=== PATIENT | female | born 1985 | race Caucasian/White ===

== ENCOUNTER 2023-08-23 08:00 | Outpatient (CLI) | payer OTHER ==
[2023-08-23 16:10] LABS: BILIRUBIN,URINE NEGATIVE (NEGATIVE); GLUCOSE, URINE (UA) NEGATIVE (NEGATIVE); KETONES,URINE (UA) NEGATIVE (NEGATIVE); LEUKOCYTE ESTERASE, URINE NEGATIVE (NEGATIVE); NITRITE,URINE NEGATIVE (NEGATIVE); OCCULT BLOOD,URINE NEGATIVE (NEGATIVE); PH,URINE 6.5 PH (5.0-7.5); PROTEIN,URINE NEGATIVE (NEGATIVE); UROBILINOGEN,URINE 0.2 (NORMAL) E.U./dL (NORMAL)
[2023-08-23 16:34] LABS: BACTERIA,URINE None Seen /HPF (None Seen); CLARITY,URINE CLEAR (CLEAR); RBC,URINE None Seen /HPF (0-5); SQUAMOUS EPITHELIAL CELL,UR RARE Squamous (<= Few); WBC,URINE 0-3 /HPF (0-5)
== END 2023-08-23 23:59 | disposition home or self-care (01) ==
LOC: LAB.WC 08:00
PROVIDERS: ATTEND Obstetrics & Gynecology
DX: Z34.90 Encounter for supervision of normal pregnancy, unspecified, unspecified trimester (principal)
CPT/HCPCS: 81001; 87086

== ENCOUNTER 2023-08-31 08:45 | Outpatient (CLI) | payer OTHER ==
--- NOTE | 2023-08-31 21:36 | Ultrasound Report ---
PROCEDURE: OB 1st Trimester INDICATIONS: POSITIVE TEST OUTSIDE/PRIOR DATING DATA: Last menstrual period (LMP): 06/06/2023?. LMP-based estimated date of delivery (ИРИНА): 03/12/2024. First dating scan (date and location): 08/31/2023. Estimated date of delivery (ИРИНА) from first dating scan: 03/20/2024. TECHNIQUE: Real-time scanning was performed of the fetus and maternal pelvic organs, with image documentation. COMPARISON: None. FINDINGS: Intrauterine gestational sac present. Embryo: [place]-rump length measures 4.35 cm, gestational age 11 weeks 1 days. Heart rate: 171 bpm. Other: Perigestational fluid collection, estimated length 5.6 cm. Measurement variability in dating: +/- 4 weeks by LMP, +/- 7 days by mean sac diameter (use before 6 weeks gestation if crown-rump length not able to be measured), +/- 5 days by crown-rump length (6-12 weeks gestation). Maternal organs: Ovaries appear within normal limits. IMPRESSION: 1. [place] living intrauterine at 11 weeks 1 day based on today's crown-rump length. 2. Perigestational hemorrhage noted. Reviewed by: Cem Bahena MD on 08/31/2023 9:34 PM PDT Approved by: Cem Bahena MD on 08/31/2023 9:34 PM PDT Station ID: [id number]
== END 2023-08-31 08:46 | disposition home or self-care (01) ==
LOC: DI 08:45
PROVIDERS: ATTEND Obstetrics & Gynecology
DX: O46.91 Antepartum hemorrhage, unspecified, first trimester (principal); Z3A.11 11 weeks gestation of pregnancy

== ENCOUNTER 2023-09-19 17:00 | Outpatient (CLI) | payer OTHER ==
--- NOTE | 2023-09-20 11:42 | Ultrasound Report ---
PROCEDURE: OB 1st Trimester INDICATIONS: SPOTTING COMPLICATING OUTSIDE/PRIOR DATING DATA: Last menstrual period (LMP): 06/06/2023. LMP-based estimated date of delivery (ИРИНА): 03/12/2024. First dating scan (date and location): 08/31/2023. Estimated date of delivery (ИРИНА) from first dating scan: 03/20/2024. TECHNIQUE: Real-time scanning was performed of the fetus and maternal pelvic organs with image docum entation. COMPARISON: 08/31/2023 FINDINGS: Heart rate: 160 bpm. Embryo: [place]-rump length measures 7.56 cm, cm corresponding to a 13 week 4 day gestation. Other: Perigestational bleed measures 2.3 x 1.0 x 4.2 cm, previously 5.6 cm Measurement variability in dating: +/- 4 weeks by LMP, +/- 7 days by mean sac diameter (use before 6 weeks gestation if crown-rump length not able to be measured), +/- 5 days by crown-rump length (6-12 weeks gestation). Maternal organs: Unremarkable IMPRESSION: Single live intrauterine consistent with 13 week 4 day gestation. Largest perigestational bleed shows slight improvement compared to prior. Consider close interval fol low-up. Reviewed by: Cheo Chavez MD on 09/20/2023 10:41 AM TIMMY Approved by: Cheo Chavez MD on 09/20/2023 10:41 AM TIMMY Station ID: [id number]
== END 2023-09-19 17:01 | disposition home or self-care (01) ==
LOC: DI 17:00
PROVIDERS: ATTEND Obstetrics & Gynecology
DX: O46.8X1 Other antepartum hemorrhage, first trimester (principal); Z3A.13 13 weeks gestation of pregnancy

== ENCOUNTER 2023-09-20 08:43 | Outpatient (CLI) | payer OTHER ==
[2023-09-20 09:04] LABS: BASOPHILS % (AUTO) 0.2 %; EOSINOPHILS # (AUTO) 0.1 10^3/uL (0.0-0.7); EOSINOPHILS % (AUTO) 1.2 %; HCT - HEMATOCRIT 38.2 % (37.0-47.0); HGB - HEMOGLOBIN 12.8 g/dL (12.0-16.0); LYMPHOCYTES # (AUTO) 1.5 10^3/uL (1.5-3.5); LYMPHOCYTES % (AUTO) 12.5 %; MEAN CORPUSCULAR HEMOGLOBIN 31.5 pg (27.0-31.0); MEAN CORPUSCULAR HGB CONC 33.5 g/dL (32.0-36.0); MEAN CORPUSCULAR VOLUME 94.1 fL (81.0-99.0); MEAN PLATELET VOLUME 9.6 fL (7.9-10.8); MONOCYTES # (AUTO) 0.7 10^3/uL (0.0-1.0); MONOCYTES % (AUTO) 5.4 %; NEUTROPHILS # (AUTO) 9.7 10^3/uL (1.5-6.6); NEUTROPHILS % (AUTO) 80.3 %; PLT - PLATELET COUNT 311 10^3/uL (130-450); RED BLOOD COUNT 4.06 10^6/uL (4.20-5.40); RED CELL DISTRIBUTION WIDTH 12.8 % (12.0-15.0); WHITE BLOOD COUNT 12.1 x10^3/uL (4.8-10.8)
[2023-09-20 09:22] LABS: CREATININE,URINE 127.3 mg/dL; PROTEIN/CREATININE RATIO,URINE 0.1 (<=0.2)
[2023-09-20 09:23] LABS: ALBUMIN/GLOBULIN RATIO 1.3 (1.0-2.2); BILIRUBIN,TOTAL 0.6 mg/dL (0.2-1.0); CREATININE 0.8 mg/dL (0.6-1.3); POTASSIUM 3.6 mmol/L (3.5-4.5)
[2023-09-20 09:59] LABS: ESTIMATED AVERAGE GLUCOSE 85 mg/dL (70-100); HEMOGLOBIN A1c% 4.6 % (4.27-6.07)
[2023-09-21 03:12] LABS: HIV SCREEN 4TH GENERATION Non Reactive (Non Reactive)
[2023-09-21 08:11] LABS: HBsAG SCREEN Negative (Negative)
[2023-09-21 12:10] LABS: VARICELLA-ZOSTER AB IGG 1341 index (Immune >165)
== END 2023-09-20 08:44 | disposition home or self-care (01) ==
LOC: LAB 08:43
PROVIDERS: ATTEND Obstetrics & Gynecology
DX: O09.522 Supervision of elderly multigravida, second trimester (principal)
CPT/HCPCS: 36415; 80053; 82570; 83036; 84156; 85025; 86592; 86762; 86787; 86803; 86850; 86900; 86901; 87340; 87389

== ENCOUNTER 2023-09-22 08:00 | Outpatient (CLI) | payer OTHER ==
[2023-09-22 23:03] LABS: CHLAMYDIA TRACHOMATIS DNA NEGATIVE (NEGATIVE); NEISSERIA GONORRHOEAE DNA NEGATIVE (NEGATIVE); TRICHOMONAS VAGINALIS DNA NEGATIVE (NEGATIVE)
== END 2023-09-22 23:59 | disposition home or self-care (01) ==
LOC: LAB.WC 08:00
PROVIDERS: ATTEND Obstetrics & Gynecology
DX: Z11.3 Encounter for screening for infections with a predominantly sexual mode of transmission (principal)
CPT/HCPCS: 87491; 87591; 87661

== ENCOUNTER 2023-11-07 10:45 | Outpatient (CLI) | payer OTHER ==
--- NOTE | 2023-11-07 19:18 | Ultrasound Report ---
PROCEDURE: OB Anatomy Scan INDICATIONS: SUPERVISION OF OUTSIDE/PRIOR DATING DATA: Last menstrual period (LMP): 06/06/2023. LMP-based estimated date of delivery (ИРИНА): 03/12/2024. First dating scan (date and location): 08/31/2023. Estimated date of delivery (ИРИНА) from first dating scan: 03/20/2024. The below data below was generated using the ultrasound ИРИНА of 03/20/2024 TECHNIQUE: Real-time scanning was performed of the fetus, with image documentation and biometric measurements. Endovaginal scanning: Not performed. COMPARISON: OB ultrasound 09/19/2023 FINDINGS: General: A single living intrauterine gestation is present. Presentation: Breech Placenta: Placental position is fundal, without previa. Amniotic fluid index: 14.2 cm, within normal limits for gestational age. heart rate: 153 beats per minute. Maternal cervical canal: 5.0 cm long; normal length is 2.5 cm or more. biometrics: Biparietal diameter: 4.9 cm, 20 weeks 6 days, 49th percentile Head circumference: 18.1 cm, 20 weeks 4 days, 27th percentile Abdominal circumference: 15.9 cm, 21 weeks 0 days, 50th percentile Femur length: 3.6 cm, 20 weeks 2 days, 58th percentile Estimated gestational age from initial scan: 20 weeks 6 days Composite gestational age from present scan: 20 weeks 5 days Estimated weight and percentile: 400 g, 59th percentile Measurement variability in biometric dating: +/- 10 days from 12-20 weeks gestation, +/- 2 weeks from 20-30 weeks gestation, +/- 3 weeks at 30 weeks gestation or later. Anatomic survey: Neuro: Ventricles are normal at less than 10 mm. Cisterna magna is normal at 3-11 mm. Cerebellum i s normal in size and morphology. Nuchal skin fold: Normal at less than 6 mm between 14 and 20 weeks gestational age. Face: Nose and lips, facial profile are normal. Spine: No evidence for spina bifida. Heart: 4-chambered heart is present, with normal ventricular outflow tracts. Diaphragm: Diaphragm is intact. Stomach: Left-sided stomach is present. Kidneys: No hydronephrosis. Normal is less than 5 mm in 2nd trimester, less than 7 mm in 3rd trimester. Cord: 3 vessel cord has orthotopic insertion. Bladder: Normal in size. Extremities: All 4 extremities are visualized. IMPRESSION: 1.Single live intrauterine with appropriate interval growth. 2. anatomic survey is within normal limits. Reviewed by: Francois Winn MD on 11/07/2023 7:16 PM PDT Approved by: Francois Winn MD on 11/07/2023 7:16 PM PDT Station ID: [id number]
== END 2023-11-07 10:46 | disposition home or self-care (01) ==
LOC: DI 10:45
PROVIDERS: ATTEND Obstetrics & Gynecology
DX: O09.522 Supervision of elderly multigravida, second trimester (principal); Z36.9 Encounter for antenatal screening, unspecified; Z3A.20 20 weeks gestation of pregnancy

== ENCOUNTER 2023-12-21 08:48 | Outpatient (CLI) | payer OTHER ==
[2023-12-21 10:01] LABS: HCT - HEMATOCRIT 37.5 % (37.0-47.0); HGB - HEMOGLOBIN 12.5 g/dL (12.0-16.0); MEAN CORPUSCULAR HEMOGLOBIN 31.5 pg (27.0-31.0); MEAN CORPUSCULAR HGB CONC 33.3 g/dL (32.0-36.0); MEAN CORPUSCULAR VOLUME 94.5 fL (81.0-99.0); MEAN PLATELET VOLUME 10.1 fL (7.9-10.8); RED BLOOD COUNT 3.97 10^6/uL (4.20-5.40); RED CELL DISTRIBUTION WIDTH 13.6 % (12.0-15.0); WHITE BLOOD COUNT 10.5 x10^3/uL (4.8-10.8)
[2023-12-22 08:11] LABS: RPR Non Reactive (Non Reactive)
== END 2023-12-21 08:49 | disposition home or self-care (01) ==
LOC: LAB 08:48
PROVIDERS: ATTEND Obstetrics & Gynecology
DX: O09.522 Supervision of elderly multigravida, second trimester (principal)
CPT/HCPCS: 36415; 82950; 85027; 86592

== ENCOUNTER 2024-03-04 18:56 | Inpatient (IN) ==
[2024-03-04] MEDS ORDERED: NIFEdipine 10 MG CAPSULE PO PRN (19:11)
[2024-03-04] MEDS ORDERED: LABETALOL 20 MG/4 ML SYRINGE IVP PRN ×3 (19:11)
[2024-03-04] MEDS ORDERED: OXYTOCIN 10 UNIT/ML VIAL IM PRN (19:11)
[2024-03-04] MEDS ORDERED: TRANEXAMIC ACID IN NACL 1,000 MG/100 ML BAG IV PRN (19:11)
[2024-03-04] MEDS ORDERED: SODIUM CHLORIDE FLUSH 0.9% 10 ML SYRINGE IVP PRN (19:11)
[2024-03-04] MEDS ORDERED: hydrALAZINE INJ 20 MG/ML VIAL IVP PRN ×2 (19:11)
[2024-03-04] MEDS ORDERED: CARBOPROST TROMETHAMINE 250 MCG/ML VIAL IM PRN (19:11)
[2024-03-04] MEDS ORDERED: miSOPROStoL 200 MCG TABLET BC PRN (19:11)
[2024-03-04] MEDS ORDERED: LACTATED RINGERS 1,000 ML IV PRN (19:11)
[2024-03-04] MEDS ORDERED: OXYTOCIN/SODIUM CHLORIDE 500 ML IV PRN (19:11)
[2024-03-04] MEDS ORDERED: lidocaine 1% 20 ML MDV ID PRN (19:11)
[2024-03-04] MEDS ORDERED: METHYLERGONOVINE 0.2 MG/ML VIAL IM PRN (19:11)
--- NOTE | 2024-03-04 19:29 | HISTORY & PHYSICAL EXAMINATION ---
Admit History Visit Reason Visit Reason: Other (Induction of Labor for Gestational Hypertension ) : 5 Parity: 4 Smoking Status: Never smoker Mother's Labs Mother's Blood Type: positive O Mother's RH: positive Positive GBS: positive Group B Step Negative Rubella Status: positive Immune HPI Current : 38-year-old G5, P4 at 37 weeks 5 days Who returns for induction of labor secondary to gestational hypertension. The patient has no complaints. She notes positive movement. She denies leakage of fluid or vaginal bleeding. She denies contractions. I discussed the plan for induction of labor for gestational hypertension. All questions and concerns were addressed. I discussed the risk and benefit associated with induction of labor. Consents were signed. Baby girl's name is [employer] Home Medications Ambulatory Orders Medication Instructions Recorded Confirmed vitamins no.159-iron tab PO 01/27/24 02/24/24 fumarate 28 mg-folic acid 800 mcg tablet ( Vitamin) Allergies Allergies Allergy/AdvReac Type Severity Reaction Status Date / Time Penicillins Allergy Severe Unknown Verified 02/24/24 08:44 [facility] Surgical History Surgical History H/O dilation and curettage History of tonsillectomy Family History Family History Father High blood pressure Mother High blood pressure Maternal grandmother High blood pressure Paternal grandfather Diabetes Social History Social History Smoking Status: Never smoker ETOH Use: None Substance Use: denies use Physical Monitoring Heart Rate Baseline: 130 Strip Review: positive Category I Presentation Presentation: positive Vertex Vaginal Exam Membranes: positive Membranes intact Dilation (in cm): 2 Effacement (%): 50 Station: positive -2 Cervical Position: positive Posterior Other Notes Labor Progress Note/Additional Text: Heartmurmur auscultated pulmonic site Lungs- clear to auscultation bilaterally Plan for Labor Plan For Labor I expect patient to be DC'd or transferred within 96 hours.: Yes Conclusion/Plan Problem List (1) Gestational hypertension: Plan: Based on mild range blood pressures greater than 140 over 94 hours apart. Labs within normal limits on previous visits, repeat labs ordered. Induction of labor initiated. Dixon bulb placed using sterile technique and inflated with 60 cc of normal saline. Patient tolerated the procedure well. (2) Heart murmur during : Plan: Cardiac murmur auscultated on pulmonic site, I discussed this with the patient who recalls a remote history of a cardiac murmur. Recommend evaluation with echo and cardiology evaluation. I discussed this with the patient. (3) 37 weeks gestation of : Plan: External monitor reactive and reassuring baseline 130s positive accelerations no decelerations noted toco no contractions moderate variability. GBS negative, induction of labor as above Lab Results Lab results reviewed: Yes 03/04/24 19:45
[2024-03-04 20:06] LABS: BASOPHILS % (AUTO) 0.2 %; EOSINOPHILS # (AUTO) 0.1 10^3/uL (0.0-0.7); EOSINOPHILS % (AUTO) 1.2 %; HCT - HEMATOCRIT 34.7 % (37.0-47.0); LYMPHOCYTES # (AUTO) 1.6 10^3/uL (1.5-3.5); LYMPHOCYTES % (AUTO) 15.6 %; MEAN CORPUSCULAR HEMOGLOBIN 32.8 pg (27.0-31.0); MEAN CORPUSCULAR HGB CONC 34.6 g/dL (32.0-36.0); MEAN CORPUSCULAR VOLUME 94.8 fL (81.0-99.0); MEAN PLATELET VOLUME 10.3 fL (7.9-10.8); MONOCYTES # (AUTO) 0.7 10^3/uL (0.0-1.0); MONOCYTES % (AUTO) 6.9 %; NEUTROPHILS # (AUTO) 7.8 10^3/uL (1.5-6.6); NEUTROPHILS % (AUTO) 75.5 %; PLT - PLATELET COUNT 271 10^3/uL (130-450); RED BLOOD COUNT 3.66 10^6/uL (4.20-5.40); RED CELL DISTRIBUTION WIDTH 13.5 % (12.0-15.0); WHITE BLOOD COUNT 10.3 x10^3/uL (4.8-10.8)
[2024-03-04] MEDS ORDERED: miSOPROStoL 100 MCG TABLET VG SCH (21:00)
[2024-03-04 21:45] LABS: ALBUMIN 3.4 g/dL (3.2-5.5); ALBUMIN/GLOBULIN RATIO 1.1 (1.0-2.2); BILIRUBIN,TOTAL 0.4 mg/dL (0.2-1.0); CALCIUM 8.5 mg/dL (8.5-10.3); CREATININE 0.7 mg/dL (0.6-1.3); TOTAL PROTEIN 6.4 g/dL (6.4-8.9)
--- NOTE | 2024-03-04 22:01 | ANESTHESIA PROCEDURE NOTE ---
Pre-Anesthesia VS, & Labs Diagnosis Surgical Diagnosis:: labor pain Procedure Procedure: labor epidural Vitals Vital Signs: Temp Pulse Resp BP 36.9 C 80 18 121/86 03/04/24 19:13 03/04/24 19:13 03/04/24 19:13 03/04/24 19:13 NPO NPO: Other Is Patient ?: Yes Lab Results Current Lab Results: Laboratory Tests 03/04/24 20:16: Blood Type O POSITIVE, Antibody Screen NEGATIVE 03/04/24 19:45: WBC 10.3, RBC 3.66 L, Hgb 12.0, Hct 34.7 L, MCV 94.8, MCH 32.8 H , MCHC 34.6, RDW 13.5, Plt Count 271, MPV 10.3, Neut # (Auto) 7.8 H, Lymph # (Auto) 1.6, [place] # (Auto) 0.7, Eos # (Auto) 0.1, Baso # (Auto) 0.0, Absolute Nucleated RBC 0.00, Nucleated RBC % 0.0, Sodium 136, Potassium 4.0, Chloride 105, Carbon Dioxide 23, Anion Gap 8.0, BUN 7, Creatinine 0.7, Estimated GFR (MDRD) 94, Glucose 94, Calcium 8.5, Total Bilirubin 0.4, AST 14, ALT 11, A lkaline Phosphatase 150 H, Total Protein 6.4, Albumin 3.4, Globulin 3.0, Albumin/Globulin Ratio 1.1 03/04/24 19:45 03/04/24 19:45 Meds/Allgy Home Medications Ambulatory Orders Medication Instructions Recorded Confirmed vitamins no.159-iron tab PO 01/27/24 02/24/24 fumarate 28 mg-folic acid 800 mcg tablet ( Vitamin) Allergies Allergies Allergy/AdvReac Type Severity Reaction Status Date / Time Penicillins Allergy Severe Unknown Verified 03/04/24 21:39 [facility] Surgical History Surgical History H/O dilation and curettage History of tonsillectomy Family History Family History Father High blood pressure Mother High blood pressure Maternal grandmother High blood pressure Paternal grandfather Diabetes Social History Social History Smoking Status: Never smoker Do you dip or chew tobacco?: No ETOH Use: None Substance Use: denies use Anesthesia Exam (Expanded) Exam General: Alert, Oriented x3 and Cooperative Dental: WNL Mouth Openin Fingerbreadth Neck Mobility: Normal Mallampati classification: II Thyromental Distance: 4-6 cm Respiratory: Lungs clear Cardiovascular: Other (pericardial murmur) Plan Problem List (1) Gestational hypertension: Plan: Based on mild range blood pressures greater than 140 over 94 hours apart. Labs within normal limits on previous visits, repeat labs ordered. Induction of labor initiated. Dixon bulb placed using sterile technique and inflated with 60 cc of normal saline. Patient tolerated the procedure well. (2) Heart murmur during : Plan: Cardiac murmur auscultated on pulmonic site, I discussed this with the patient who recalls a remote history of a cardiac murmur. Recommend evaluation with echo and cardiology evaluation. I discussed this with the patient. (3) 37 weeks gestation of : Plan: External monitor reactive and reassuring baseline 130s positive accelerations no decelerations noted toco no contractions moderate variability. GBS negative, induction of labor as above (4) Hypertension affecting in third trimester: (5) Obesity affecting in third trimester: (6) H/O dilation and curettage: (7) History of tonsillectomy: Plan Anesthesia Type: Epidural Regional Block: Per Surgeon's request for Post Op pain control Consent for Procedure(s) Verified and Reviewed: Yes Code Status: Attempt Resuscitation ASA Classification ASA classification: 2-Mild systemic disease Is this case an emergency?: No
[2024-03-04 23:03] LABS: CREATININE,URINE 35.1 mg/dL; PROTEIN/CREATININE RATIO,URINE 0.1 (<=0.2)
[2024-03-05] MEDS: LACTATED RINGERS 1,000 ML IV PRN (09:45)
[2024-03-05] MEDS: OXYTOCIN/SODIUM CHLORIDE 500 ML IV SCH (10:00)
--- NOTE | 2024-03-05 11:02 | PHARMACY PROGRESS NOTE ---
Best Possible Medication History Admit Date and Time: 03/04/24 191 Home Medications Medication Instructions Recorded Confirmed Type vitamins no.159-iron 1 tab PO DAILY 01/27/24 03/05/24 History fumarate 28 mg-folic acid 800 mcg tablet ( Vitamin) Processed by: Pharmacy (Medication reconciliation completed by pharmacy customer care specialistDon ) Medications reviewed in ED?: No Medication History completed: Yes Patient Interview: Pt unable to participate Secondary Source(s): Insurance records [facility] Statement: As the person ultimately responsible for medication therapy, providers are able to order a medication from an existing home medication list in [facility] via the "Reconcile Routine" prior to Confirmation of that medication by program support clerk. Such practice is discouraged except when the physician, in their clinical judgment, deems that a medical need exists for a medication without regard to previous use.
--- NOTE | 2024-03-05 13:19 | PROVIDER PROGRESS NOTE ---
Labor Progress Note Labor Progress Note Labor Progress Note/Additional Text: S: Overall feeling well. Denies MCCLAIN, vision changes, upper abdominal pain. Confirmed desire for permanent sterilization. If she were to need a delivery, does desire bilateral salpingectomy. Denies painful contractions. She was evalated this morning after removal of cervical ripening balloon, SVE 4/50/high, AROM discussed but deferred. Pitocin started, now on 16u. Feeling only occasionally contractions. SVE repeated, still 4cm but lower station. Discussed AROM again and she did desire to proceed. Planning for epidural at some point. [facility]: [facility]2, AROM with small amount of bloody fluid. monitoring: FHTs: 130s bpm baseline, + accel, - decel, mod variability [place]: 2-6 min Cat 1 A/P: 38 at 37w6d undergoing IOL for gHTN - gHTN - Desires permanent sterilization - h/o delayed PPH (after discharge home) S/p cervical ripening balloon. Pitocin started this AM and now s/p AROM. Continue pitocin augmentation. Plan for repeat SVE in 4 hrs. Confirmed desire again for permanent sterilization if delivery needed. Otherwise, will likely plan for laparoscopic procedure . T&C x 2 units given h/o PPH and multiparity. BPs normal to mild range since admission with normal labs, asymptomatic. Will continue to monitor. Elvira Aguirre MD
[2024-03-05] MEDS ORDERED: LIDOCAINE 2%-EPI 1:100000 20 ML MDV ONE (16:34)
[2024-03-05] MEDS ORDERED: ROPIVACAINE 0.2% 200 MG/100 ML BAG EP ONE (16:34)
[2024-03-05] MEDS ORDERED: ONDANSETRON 4 MG/2 ML VIAL IVP PRN (19:18)
[2024-03-05] MEDS ORDERED: SIMETHICONE CHEW 80 MG TABLET PO PRN (19:18)
[2024-03-05] MEDS ORDERED: LABETALOL 20 MG/4 ML SYRINGE IVP PRN ×2 (19:18)
[2024-03-05] MEDS ORDERED: NIFEdipine 10 MG CAPSULE PO PRN (19:18)
[2024-03-05] MEDS ORDERED: NALOXONE 0.4 MG/ML VIAL IVP PRN (19:18)
[2024-03-05] MEDS ORDERED: oxyCODONE 5 MG TABLET PO PRN (19:18)
[2024-03-05] MEDS ORDERED: OXYTOCIN/SODIUM CHLORIDE 500 ML IV PRN (19:18)
[2024-03-05] MEDS ORDERED: WITCH HAZEL/GLYCERIN 1 PAD TOP PRN (19:18)
[2024-03-05] MEDS ORDERED: ACETAMINOPHEN 500 MG TABLET PO PRN (19:18)
[2024-03-05] MEDS ORDERED: LABETALOL 5 MG/1 ML 20 ML MDV IVP PRN (19:18)
[2024-03-05] MEDS ORDERED: diphenhydrAMINE 25 MG CAPSULE PO PRN (19:18)
[2024-03-05] MEDS ORDERED: HYDROCORTISONE 1% CREAM 28 GM TUBE TOP PRN (19:18)
[2024-03-05] MEDS ORDERED: hydrALAZINE INJ 20 MG/ML VIAL IVP PRN ×2 (19:18)
--- NOTE | 2024-03-05 19:27 | DELIVERY NOTE ---
Delivery Note Labor Labor: positive Other (IOL with cervical ripening balloon, followed by pitocin and AROM) Infant Delivery Method Delivery Method: positive Spontaneous vaginal delivery Presentation Presentation: positive Vertex and EBER - left occiput anterior Nuchal Cord Nuchal Cord: positive None Amniotic Fluid Description Amniotic Fluid Description: positive Bloody Episiotomy Type Episiotomy Type: positive None Laceration Laceration: positive None Delivery Outcome Delivery Outcome: positive Livebirth [place]: positive Placed in direct skin contact with mother, Stimulated and Warmed sex: positive Female Cord Cord: positive 3 vessels Placenta Placenta: positive Intact and Spontaneous Estimated Blood Loss Estimated Blood Loss (in cc): 200 Post Delivery Events Post Delivery Events: positive No post delivery events Delivery Comments (Free Text/Narrative) Delivery Comments (Free Text/Narrative): Bradley was examined at bedside and complete, + 2 station. The anterior shoulder delivered easily with maternal effort and gentle downward pressure followed by the posterior shoulder and the remainder of the body. The was placed on Bradley's abdomen. After 60 sec the cord was clamped times two and cut. Cord blood collected. Pitocin was started. The placenta was delivered intact. Good uterine tone and perineal hemostasis noted.
[2024-03-05] MEDS: DOCUSATE SODIUM 100 MG CAPSULE PO SCH (21:30)
[2024-03-06] MEDS: IBUPROFEN 600 MG TABLET PO PRN (05:56)
--- NOTE | 2024-03-06 10:17 | PROVIDER PROGRESS NOTE ---
Subjective Subjective Subjective: She is feeling well. Ambulating and urinating without difficulty. Pain is well controlled. Reports lochia is normal. She is . Would like to stay until tomorrow so she does not need to come back for bilirubin check for baby. Current Medications Current Medications Current Medications: Current Medications Generic Name Dose Route Start Last Admin Trade Name Freq PRN Reason Stop Dose Admin Acetaminophen 1,000 mg 03/05/24 19:18 Acetaminophen 500 Mg Tablet PO Q8HR PRN Mild Pain or Fever>38C(100.4F) Diphenhydramine HCl 25 mg 03/05/24 19:18 Diphenhydramine 25 Mg Capsule PO Q6HR PRN Allergy Symptoms Docusate Sodium 100 mg 03/05/24 21:00 03/05/24 21:30 Docusate Sodium 100 Mg Capsule PO Not Given BID CHUCHO Hydralazine HCl 5 - 20 mg 03/04/24 19:11 Hydralazine Inj 20 Mg/Ml Vial IVP Q20M PRN SBP >160 or DBP >110 Protocol Hydralazine HCl 10 mg 03/04/24 19:11 Hydralazine Inj 20 Mg/Ml Vial IVP 03/09/24 19:11 .ONCE PRN Step 9 of Labetalol protocol Protocol Hydralazine HCl 10 mg 03/05/24 19:18 Hydralazine Inj 20 Mg/Ml Vial IVP .ONCE PRN SBP> or= 160 OR DBP> or= 110 Protocol Hydralazine HCl 5 - 10 mg 03/05/24 19:18 Hydralazine Inj 20 Mg/Ml Vial IVP Q20M PRN SBP >=160 and/or DBP >=110 Protocol Hydrocortisone 1 applic 03/05/24 19:18 Hydrocortisone 1% Cream 28 Gm Tube TOP QID PRN Hemorrhoids Ibuprofen 600 mg 03/05/24 19:18 03/06/24 05:56 Ibuprofen 600 Mg Tablet PO 600 mg Q6HR PRN Administration Moderate Pain (Level 4-6) Labetalol HCl 20 - 80 mg 03/04/24 19:11 Labetalol 20 Mg/4 Ml Syringe IVP Q10M PRN SBP >160 or DBP >110 Protocol Labetalol HCl 20 mg 03/04/24 19:11 Labetalol 20 Mg/4 Ml Syringe IVP 03/09/24 19:11 .ONCE PRN Step 9 of nifedipine protocol Protocol Labetalol HCl 40 mg 03/04/24 19:11 Labetalol 20 Mg/4 Ml Syringe IVP 03/09/24 19:11 .ONCE PRN Step 9 of hydrALAZine protocol Protocol Labetalol HCl 20 - 80 mg 03/05/24 19:18 Labetalol 5 Mg/1 Ml 20 Ml Mdv IVP Q10M PRN SBP> or= 160 OR DBP> or= 110 Protocol Labetalol HCl 20 - 40 mg 03/05/24 19:18 Labetalol 20 Mg/4 Ml Syringe IVP Q10M PRN SBP> or= 160 OR DBP> or= 110 Protocol Labetalol HCl 20 mg 03/05/24 19:18 Labetalol 20 Mg/4 Ml Syringe IVP .ONCE PRN SBP >=160 and/or DBP >=110 Protocol Nifedipine 10 - 20 mg 03/04/24 19:11 Nifedipine 10 Mg Capsule PO Q20M PRN SBP >160 or DBP >110 Protocol Nifedipine 10 - 20 mg 03/05/24 19:18 Nifedipine 10 Mg Capsule PO Q20M PRN SBP >=160 and/or DBP >=110 Protocol Ondansetron HCl 4 mg 03/05/24 19:18 Ondansetron 4 Mg/2 Ml Vial IVP Q4HR PRN Nausea / Vomiting Oxycodone HCl 5 mg 03/05/24 19:18 Oxycodone 5 Mg Tablet PO Q4HR PRN Severe Pain 6-10 Oxytocin 10 unit 03/04/24 19:11 Oxytocin 10 Unit/Ml Vial IM 03/09/24 19:11 .ONCE PRN Step one: If no IV access Simethicone 80 mg 03/05/24 19:18 Simethicone Chew 80 Mg Tablet PO TID PRN Gas Witch Adriana/Glycerin 1 pad 03/05/24 19:18 Witch Adriana/Glycerin 1 Pad TOP PRN PRN ITCHING Objective Vital Signs/Intake & Output Reviewed Vital Signs: Yes Vital Signs: Vital Signs x48h Temp Pulse Resp BP Pulse Ox 03/06/24 09:18 98.1 F 68 14 124/74 98 03/06/24 06:07 99.1 F 67 16 118/61 99 Intake & Output: Intake & Output 03/03/24 03/04/24 03/05/24 03/06/24 23:59 23:59 23:59 23:59 Intake Total 2712 / 2712 Output Total 800 / 800 Balance 1912 Weight (kg) 205 lb Objective Comments/Other: Gen: NAD Chest: non labored respirations Abd: soft, non tender, fundus firm Ext: no LE edema Lab Results 03/04/24 19:45 03/04/24 19:45 Other Labs: Lab Results x24hrs 03/04/24 Range/Units 20:16 Blood Type O POSITIVE Antibody Screen NEGATIVE Crossmatch IS Only See Detail Assessment/Plan Problem List (1) care and examination of lactating mother: (2) Gestational hypertension: (3) Heart murmur during : (4) Obesity affecting in third trimester: (5) H/O dilation and curettage: Impression: - Continue routine care - Plan for discharge home tomorrow AM. If BPs remain well controlled today, can consider discharge home this evening if Bradley desires - at this time she would like to stay until the morning. - Heart murmur, noted on admission, asymptomatic. Can plan for further evaluation outpatient.
[2024-03-06 22:56] VITALS: O2SAT 98
--- NOTE | 2024-03-07 08:24 | Discharge Summary ---
Discharge Summary Admit Date: 03/04/24 Discharge Date: 03/07/24 Discharging Provider: Elvira ALMODOVAR History of Present Illness: Admission Diagnosis: - SIUP at 37w5d - gHTN - Desires permanent sterilization - H/o delayed PPH Discharge Diagnosis: - Same, delivered Procedures: Hospital Course: Bradley is a 38 yo now who presented at 37w5d for IOL for gHTN. She underwent IOL with cervical ripening balloon followed by pitocin and AROM. She had an uncomplicated and course. Intermittent mild range BPs during labor, normal range . Condition on Discharge: SUBJECTIVE: day 2 She feels well. Pain is well controlled with current medications. The baby is doing well. Baby is feeding via . She is ambulating well, tolerating normal diet, urinating without difficulty. Lochia is reported as normal. She desires laparoscopic bilateral salpingectomy . OBJECTIVE: Vital signs reviewed GENERAL: NAD CHEST: non labored respirations ABD: soft, non tender, fundus firm EXT: minimal extremity edema; No evidence of DVT LAB & IMAGING STUDIES: See below PLAN: Plan for discharge home with follow up in clinic next Tuesday for BP check. Reviewed home care instructions and medications. Patient counseled regarding signs and symptoms of infection, excessive bleeding, vaginal rest and activity restrictions. Preeclampsia precautions also reviewed in detail. Discussed that additional support is available in our clinic if needed. ALLERGIES Allergies Allergy/AdvReac Type Severity Reaction Status Date / Time Penicillins Allergy Severe Unknown Verified 03/04/24 21:39 MEDICATIONS Ambulatory Orders Medication Instructions Recorded Confirmed vitamins no.159-iron 1 tab PO DAILY 01/27/24 03/05/24 fumarate 28 mg-folic acid 800 mcg tablet ( Vitamin) LABS 03/04/24 19:45 03/04/24 19:45 FOLLOW UP Follow Up: 7 days for BP check. TIME SPENT Time Spent in Discharge (Minutes): 20 Discharge Plan Discharge Patient Disposition: Home, Self Care Prescriptions: Continued Vitamin 28 mg iron- 800 mcg tablet 1 tab PO DAILY Print Language: Kazakh Patient Instructions: Vaginal After, Childbirth Breast Care, Change Expect Parents Follow-up Care: ROSA ELENA BLACKWELL NP [Primary Care Provider] -
--- NOTE | 2024-03-07 11:18 | Labor Flowsheet ---
Labor Flowsheet Datetime Report Generated by CPN: 03/07/2024 11:18 Datetime: 03/07/2024 08:25 VITAL SIGNS NBP Sys/Kelli/Mean (mmHg): 138 : 86 : 97 Pulse: 68 LaborFlag: Labor Datetime: 03/06/2024 12:24 SpO2 (%): 98 Datetime: 03/05/2024 19:09 Vital Sign Comments: arm bent and shaking wityh bp, not accurate Datetime: 03/05/2024 19:00 UTERINE ACTIVITY Monitor Mode: External Frequency (min): 1-3 Quality: Mild Duration (sec): 50-90 Pattern: Normal: <= 5 Contractions in 10 Minutes Resting Tone (Palpate): Relaxed ASSESSMENT A Monitor Mode: External US FHR Baseline Rate : 130 FHR Baseline Changes: No Baseline Change Variability: Moderate 6-25 bpm Accelerations: 15X15 Decelerations: Early; Variable Datetime: 03/05/2024 18:59 STAGE 2 Pushing Position: Pushing with Contractions Pushing Progress: Descent with Pushing; Presenting Part Visible Datetime: 03/05/2024 18:52 I/O Interventions: Christy Discontinued Datetime: 03/05/2024 17:24 VAGINAL EXAM Dilatation (cm): 8.0 Effacement (%): 75 Station: -1 Exam by: maria del carmen rn Patient Care Comments: christy catheter inderted Datetime: 03/05/2024 17:14 Temperature (C): 36.7 Datetime: 03/05/2024 16:50 Epidural Procedure Other: Single Dose Datetime: 03/05/2024 16:44 PROCEDURE TIME OUT Procedure Verify: Correct Patient Identity; Accurate Procedure Consent Form; Agreement on Procedure to be Done; Correct Patient Position; Safety Precautions Based on Patient History or Medication Use Datetime: 03/05/2024 16:39 Comments: unable to monitor baby while sitting for epidural. Datetime: 03/05/2024 16:36 ANESTHESIA Epidural Positioning: Sitting Datetime: 03/05/2024 16:33 Anesthesia Comments: [employer] present Datetime: 03/05/2024 16:30 Category: Category I Datetime: 03/05/2024 16:02 Monitor Interventions for UA: Hissop Adjusted Datetime: 03/05/2024 15:59 Communication Comments: Pt requests epidural Datetime: 03/05/2024 14:40 PATIENT CARE Patient Position/Activity: Birthing Ball Datetime: 03/05/2024 14:30 MEDICATIONS Pitocin (milliunits): Increased to @ 20 Datetime: 03/05/2024 13:03 Membranes Rupture Method: Artificial Amniotic Fluid Color: Clear Amniotic Fluid Amount: Small Membrane Comments: AROM by Timothy Datetime: 03/05/2024 12:58 Provider Reviewed Strip: Yes COMMUNICATION Communication: Provider at Bedside Datetime: 03/05/2024 12:55 Temperature Route: Oral Datetime: 03/05/2024 11:50 Contraction Comments: contraction Datetime: 03/05/2024 11:49 Monitor Interventions for FHR: Ultrasound Adjusted Datetime: 03/05/2024 08:19 Vaginal Bleeding: Scant Cervix, Consistency: Soft Cervix, Position: Midposition Datetime: 03/05/2024 08:03 Respirations: 18 Datetime: 03/05/2024 08:00 Cervical Ripening Agents: Christy Balloon Medication Comments: Balloons intact Datetime: 03/05/2024 03:51 Membranes Ruptured Date/Time: 03/05/2024 13:00 Datetime: 03/04/2024 22:41 Stage of : Labor Strip Reviewed by: Yamila Odell RN Provider Notified (Name): Dr. Moore Notification Reason: Status Update; Status; Labor Status; Uterine Activity; Lab/Diagnostic St [facility] Datetime: 03/04/2024 20:02 Cervical Ripening Agents Other: 60/40 CRB placed
== END 2024-03-07 10:30 | disposition home or self-care (01) | DRG 807 ==
LOC: WFO 18:56 → FBP 18:59
PROVIDERS: ADMIT Obstetrics & Gynecology; ATTEND Obstetrics & Gynecology
DX: Z37.0 Single live birth; R01.1 Cardiac murmur, unspecified; O99.214 Obesity complicating childbirth; Z3A.37 37 weeks gestation of pregnancy; O13.4 Gestational [pregnancy-induced] hypertension without significant proteinuria, complicating childbirth; O99.892 Other specified diseases and conditions complicating childbirth